=== PATIENT | male | born 1950 | race American Indian/Alaskan Native ===

== ENCOUNTER 2018-03-24 10:40 | Day surgery (SDC) | payer MEDICARE ==
[2018-03-24] MEDS ORDERED: NEOFRIN ONE (11:18)
[2018-03-24] MEDS ORDERED: NEO SYNEPHRINE ONE (11:18)
[2018-03-24] MEDS ORDERED: MYDRIACYL ONE (11:18)
[2018-03-24] MEDS ORDERED: TETRACAINE 0.5% ONE (11:19)
[2018-03-24] MEDS ORDERED: CYCLOGYL ONE (11:19)
[2018-03-24] MEDS ORDERED: GONAK ONE (11:20)
[2018-03-24] MEDS ORDERED: XYLOCAINE 2%/ EPI 1:200,000 INFILTRATI ONE (11:21)
[2018-03-24] MEDS ORDERED: TOBRADEX ONE (11:21)
[2018-03-24] MEDS ORDERED: NEOFRIN OS ONE (11:26)
[2018-03-24] MEDS ORDERED: MYDRIACYL OS ONE (11:26)
[2018-03-24] MEDS ORDERED: CYCLOGYL OS ONE (11:26)
[2018-03-24 12:02] VITALS: BP 128/60
[2018-03-24] MEDS ORDERED: TETRACAINE 0.5% OS ONE (12:24)
[2018-03-24] MEDS ORDERED: XYLOCAINE 2%/EPI 1:100,000 INFILTRATI ONE (12:25)
[2018-03-24] MEDS ORDERED: GONAK OS ONE (12:26)
== END 2018-03-24 10:41 | disposition home or self-care (01) ==
LOC: OR 10:40
PROVIDERS: ATTEND Specialist
DX: E11.319 Type 2 diabetes mellitus with unspecified diabetic retinopathy without macular edema (principal); I10 Essential (primary) hypertension; Z79.82 Long term (current) use of aspirin; Z79.4 Long term (current) use of insulin; Z85.46 Personal history of malignant neoplasm of prostate; Z92.3 Personal history of irradiation
CPT/HCPCS: 67228; 82962; J2370